=== PATIENT | male | born 1990 | race African-American/Black ===

== ENCOUNTER 2018-12-01 09:46 | Emergency (ER) | payer SELFPAY ==
[~2018-12-01] VITALS: Ht 167.6 cm; Wt 75.2 kg
[2018-12-01 09:49] VITALS: Ht 167.6 cm; Wt 75.2 kg
[2018-12-01] MEDS ORDERED: LIDOCAINE 1% (MPF) 5 ML VIAL INJ ONE ×2 (11:00→11:30)
[2018-12-01] MEDS ORDERED: CEFAZOLIN 1 GM INJ IM ONE (11:30)
[2018-12-01] MEDS ORDERED: DIPHTH/TET/ACEL PERTUSS (ADULT) 0.5 ML VIAL IM* ONE (12:00)
[2018-12-01] MEDS ORDERED: ONDANSETRON (ODT) 4 MG TAB ODT STA (12:27)
[2018-12-01] MEDS ORDERED: HYDR-4011 PO (12:30)
[2018-12-01] MEDS ORDERED: HYDROCODONE/APAP (5/325) TAB PO ONE (12:30)
[2018-12-01] MEDS ORDERED: NAPR-985 PO (12:30)
[2018-12-01] MEDS ORDERED: CEPH-443 PO (12:42)
--- NOTE | 2018-12-01 12:49 | ERD ---
ER Documentation Chief Complaint Chief Complaint Complains of right hand pain after punching a door HPI 28-year-old male presenting with pain to right hand. Patient punched a door earlier today and sustained a laceration and pain at the base of his right fifth digit. He does not recall his last tetanus shot. He is right-hand dominant. Has pain with movement. Denies any numbness or tingling. Denies medical problems. NKDA. Surgical history denies. Social history smokes 5 cigarettes a day and marijuana occasionally. ROS All systems reviewed and are negative except as per history of present illness. Medications Home Meds Active Scripts Cephalexin* (Keflex*) 500 Mg Capsule, 500 MG PO QID for 7 Days, CAP Prov:OG ST PA-C 12/01/18 Naproxen* (Naprosyn*) 500 Mg Tablet, 500 MG PO BID PRN for PAIN AND/OR INFLAMMATION, #30 TAB Prov:OG ST PA-C 12/01/18 Hydrocodone/Acetaminophen ([place] 5-325 Tablet) 1 Each Tablet, 1 TAB PO Q6H PRN for PAIN, #7 TAB Prov:OG ST PA-C 12/01/18 Allergies Allergies: Coded Allergies: No Known Allergy (Unverified , 12/01/18) PMhx/Soc Hx Alcohol Use: No Hx Substance Use: No Hx Tobacco Use: No Smoking Status: Never smoker FmHx Family History: No diabetes, No coronary disease, No other Physical Exam Vitals Vital Signs Date Temp Pulse Resp B/P (MAP) Pulse Ox O2 O2 Flow FiO2 Time Delivery Rate 12/01/18 97.2 72 20 129/67 97 09:49 (87) Physical Exam GENERAL: The patient is well-appearing, well-nourished, in no acute distress CHEST: Clear to auscultation bilaterally. There are no rales, wheezes or rhonchi. HEART: Regular rate and rhythm. No murmurs, clicks, rubs or gallops. No S3 or S4. EXTREMITIES: Pain with flexion and extension of right fifth digit. Pain to the base of the right fifth digit. Mild deformity noted at the base of the right fifth digit on the metacarpal. NEUROLOGIC: Neuro intact to distal fingertips of the right hand. Cap refill less than 2 seconds. SKIN: 5 mm linear laceration Results 24 hrs Current Medications Medications Dose Sig/Celia Start Time Status Last (Trade) Ordered Route PRN Stop Time Admin Dose Reason Admin Lidocaine 5 ml ONCE ONCE 12/01/18 DC (Xylocaine INJ 11:00 1% (Mpf)) 12/01/18 11:01 Cefazolin 1 gm ONCE ONCE 12/01/18 DC 12/01/18 Sodium IM 11:30 11:45 (Ancef) 12/01/18 11:31 Lidocaine 5 ml ONCE ONCE 12/01/18 DC (Xylocaine INJ 11:30 1% (Mpf)) 12/01/18 11:31 Diphtheria/ 0.5 ml ONCE ONCE 12/01/18 DC 12/01/18 Tetanus/Acell IM* 12:00 12:00 Pertussis 12/01/18 12:01 (Adacel) 1 tab ONCE ONCE 12/01/18 DC 12/01/18 Acetaminophen PO 12:30 12:32 / 12/01/18 12:31 Hydrocodone Bitart ([place] (5/325)) Ondansetron 4 mg ONCE STAT 12/01/18 DC 12/01/18 HCl (Zofran ODT 12:27 12:32 Odt) 12/01/18 12:28 Procedures/MDM DIAGNOSTIC IMAGING REPORT Patient: SHARON NAVARRO : 1990 Age: 28 Sex: M MR #: [id number] DOS: 12/01/18 1040 Ordering MD: TOM ST PA-C Location: [facility] Room/Bed: PROCEDURE: XR Hand. CLINICAL INDICATION: Right hand pain following injury. TECHNIQUE: Three views of the right hand were obtained. COMPARISON: No prior studies are available for comparison. FINDINGS: There is an impacted fracture of the right fifth metacarpal with volar displacement of the distal fracture fragment. There is an additional fracture of the base of the metacarpal seen only on the lateral view. The joint spaces are well preserved. No significant soft tissue abnormalities are appreciated. IMPRESSION: 1. Impacted fracture of the right fifth metacarpal distally with volar displacement of the distal fracture fragment. 2. Additional fracture of the metacarpal base seen only on the lateral view, possibly of the fourth metacarpal. Close attention on follow-up imaging is advised to assess for healing changes. Laceration Repair by me: Anesthesia: 1% lidocaine locally Location: Dorsal right fifth digit Tendon/Joint/Nerves: No injury Foreign body: None detected after copious irrigation and exploration Technique: 2 4-0 nylon Simple Interrupted Sutures Complexity: No subcutaneous sutures/mucosal repair/edge excision Post Closure Length: 5 mm Patient's bleeding was easily controlled in the department and there is no indication of anemia. No evidence of compartment syndrome, neurologic injury, vascular injury, open joint, tendon laceration, or foreign body. Patient is appropriate for outpatient follow up. 48 hour wound check. Scar minimization instructions given. ER course: Ulnar gutter applied to right hand. Neuro intact pre-and post splint application. Ancef given in ED. Tetanus given ED. MDM: 28-year-old male presenting with complaints of pain to right hand. Patient has a boxer fracture seen on x-ray. Patient had laceration repaired performed in ED. Since he did have a laceration adjacent to the bone fracture I will treat as open fracture and give antibiotics. Patient is told to follow-up with hand surgeon as there is displacement noted of the bone. I have low suspicion for neuro deficit. I have low suspicion for tendon or ligament rupture. Patient is encouraged and I discussed the reasons why he follow-up with hand. All questions answered at discharge Departure Diagnosis: Primary Impression: Boxers fracture Condition: Stable Patient Instructions: Fracture, Boxer's Referrals: ROSCOE KYLE MD [facility] Additional Instructions: FOLLOW UP WITH YOUR PRIMARY CARE PHYSICIAN TOMORROW.Return to this facility if you are not improving as expected. OG ST PA-C Dec 01, 2018 12:49
[2018-12-01 12:59] VITALS: BP 112/57; PULSE 72; RESP 18
== END 2018-12-01 13:01 | disposition home or self-care (01) ==
LOC: FTE 09:46
DX: S62.396A Other fracture of fifth metacarpal bone, right hand, initial encounter for closed fracture (principal); F17.210 Nicotine dependence, cigarettes, uncomplicated; W22.8XXA Striking against or struck by other objects, initial encounter; Y92.9 Unspecified place or not applicable; Z23 Encounter for immunization
CPT/HCPCS: 12001; 73130; 90715; J0690; 90471; 96372